=== PATIENT | female | born 1985 | race Caucasian/White ===

== ENCOUNTER 2024-05-29 14:26 | Inpatient (IN) | payer SELFPAY ==
[~2024-05-29] VITALS: Ht 157.5 cm; Wt 54.0 kg
[2024-05-29 15:36] LABS: BASOPHILS % 0.7 % (0.0-2.0); EOSINOPHILS % 2.3 % (0.0-5.0); HEMATOCRIT. 33.5 % (36.0-48.0); HEMOGLOBIN. 11.2 g/dL (12.0-16.0); LYMPHOCYTES % 31.3 % (20.0-50.0); MEAN CORPUSCULAR HEMOGLOBIN 27.7 pg (28.0-32.0); MEAN CORPUSCULAR HGB CONC 33.4 g/dL (31.0-37.0); MEAN CORPUSCULAR VOLUME 82.7 fL (81.0-99.0); MEAN PLATELET VOLUME 7.8 fl (7.4-10.4); MONOCYTES % 7.5 % (2.0-8.0); NEUTROPHILS % 58.2 % (40.0-76.0); PLATELET 243 x1000/uL (130-400); RED BLOOD CELL COUNT 4.05 mill/uL (4.2-5.4); WHITE BLOOD COUNT 4.8 x1000/uL (4.5-11.0)
[2024-05-29 15:42] LABS: HCG SCREEN NEGATIVE
[2024-05-29 15:43] LABS: CHLORIDE 108 mEq/L (98-107); POTASSIUM 3.7 mEq/L (3.5-5.1); SODIUM 138 mEq/L (136-145)
[2024-05-29 15:44] LABS: CARBON DIOXIDE 26 mEq/L (21-32)
[2024-05-29 15:48] LABS: UREA NITROGEN BLOOD 17 mg/dL (9-23)
[2024-05-29 15:49] LABS: CREATININE 0.7 mg/dL (0.6-1.0)
[2024-05-29 15:50] LABS: AMMONIA 40 uMol/L (<32); GLUCOSE 90 mg/dL (70-105)
[2024-05-29 15:51] LABS: ACETAMINOPHEN < 2 ug/mL (10-30); ALANINE AMINOTRANSFERASE 14 IU/L (10-49); ALBUMIN 4.1 g/dL (3.2-4.8); ASPARTATE AMINOTRANSFERASE 19 IU/L (<34)
[2024-05-29 15:52] LABS: BILIRUBIN DIRECT 0.1 mg/dL (<=3.0); BILIRUBIN TOTAL 0.5 mg/dL (0.1-1.0); PROTEIN TOTAL 6.8 g/dL (6.0-8.3)
[2024-05-29 15:53] LABS: THYROID STIMULATING HORMONE 1.85 uIU/mL (0.55-4.78)
[2024-05-29 15:58] LABS: ETHANOL BLOOD < 10 mg/dL (<10)
[2024-05-29] MEDS: LORAZEPAM 2MG/ML INJ IM ONE (17:21)
[2024-05-29] MEDS: HALOPERIDOL LACTATE 5MG/ML VIAL IM ONE (17:21)
[2024-05-29 18:25] LABS: CLARITY URINE CLEAR (CLEAR); COLOR URINE YELLOW (YELLOW); GLUCOSE URINE NEGATIVE (NEGATIVE); KETONES URINE NEGATIVE (NEGATIVE); LEUKOCYTE ESTERASE URINE TRACE (NEGATIVE); NITRITE URINE NEGATIVE (NEGATIVE); OCCULT BLOOD URINE NEGATIVE (NEGATIVE); PH URINE 7.5 (4.5-8.0); PROTEIN URINE TRACE (NEGATIVE); SPECIFIC GRAVITY URINE 1.019 (1.005-1.030)
[2024-05-29 18:44] LABS: *AMPHETAMINES SCREEN URINE PRESUMPTIVE POSITIVE (NEGATIVE); *BARBITURATES SCREEN URINE NEGATIVE (NEGATIVE); *BENZODIAZEPINES SCREEN URINE NEGATIVE (NEGATIVE); *COCAINE SCREEN URINE NEGATIVE (NEGATIVE); CANNABINOID URINE SCREEN NEGATIVE (NEGATIVE); ECSTASY MDMA SCREEN URINE CONF.TEST INDICATED (NEGATIVE); METHADONE URINE SCREEN NEGATIVE (NEGATIVE); OPIATES URINE SCREEN NEGATIVE (NEGATIVE); PHENCYCLIDINE URINE SCREEN NEGATIVE (NEGATIVE)
[2024-05-29 18:56] LABS: BACTERIA URINE 1+; RBC URINE 0-2 /hpf (0-2); SQUAMOUS EPITHELIAL CELL URINE 1+ /lpf (RARE/1+); WBC URINE 0-2 /hpf (0-2)
[2024-05-29] MEDS ORDERED: NITROGLYCERIN 0.4MG TABLET SL SL PRN (21:45)
[2024-05-29] MEDS ORDERED: ZOLPIDEM TARTRATE 5MG TABLET PO PRN (21:45)
[2024-05-29] MEDS: DEXT 5%/LACTATED RINGERS 1,000 ML IV SCH (21:45)
[2024-05-29] MEDS ORDERED: KETOROLAC 15MG/ML VIAL IV PRN (21:45)
[2024-05-30] VITALS (7 sets, daily range): BP systolic 96–112; BP diastolic 46–70; PULSE 58–89; RESP 17–18; TEMP 36.2512–37.00296; O2SAT 96–100
[2024-05-30] MEDS ORDERED: CLONIDINE 0.1MG TABLET PO PRN
[2024-05-30] MEDS ORDERED: DOCUSATE SODIUM 100MG CAPSULE PO PRN
[2024-05-30] MEDS ORDERED: IPRATROPIUM/ALBUTEROL 0.5-3(2.5)MG/3ML NEB NEB PRN
[2024-05-30] MEDS ORDERED: GUAIFENESIN 200MG/10ML SUGAR FREE UDC PO PRN
[2024-05-30] MEDS ORDERED: MAGNESIUM/ALUMINUM HYDROXIDE/SIMETHICONE 30ML UDC PO PRN
[2024-05-30] MEDS ORDERED: LORAZEPAM 2MG/ML INJ IV PRN
[2024-05-30] MEDS ORDERED: ONDANSETRON HCL 4MG/2ML INJ IV PRN
[2024-05-30] MEDS ORDERED: ACETAMINOPHEN 325MG TABLET PO PRN ×2
[2024-05-30 07:10] LABS: BASOPHILS % 0.5 % (0.0-2.0); EOSINOPHILS % 3.6 % (0.0-5.0); HEMATOCRIT. 35.2 % (36.0-48.0); HEMOGLOBIN. 11.2 g/dL (12.0-16.0); MEAN CORPUSCULAR HEMOGLOBIN 26.6 pg (28.0-32.0); MEAN CORPUSCULAR VOLUME 83.3 fL (81.0-99.0); MEAN PLATELET VOLUME 7.8 fl (7.4-10.4); MONOCYTES % 6.8 % (2.0-8.0); NEUTROPHILS % 59.1 % (40.0-76.0); PLATELET 204 x1000/uL (130-400); RED BLOOD CELL COUNT 4.22 mill/uL (4.2-5.4); RED CELL DISTRIBUTION WIDTH 13.8 % (11.6-14.6); WHITE BLOOD COUNT 4.2 x1000/uL (4.5-11.0)
[2024-05-30 07:18] LABS: CARBON DIOXIDE 26 mEq/L (21-32); CHLORIDE 108 mEq/L (98-107); POTASSIUM 3.9 mEq/L (3.5-5.1); SODIUM 140 mEq/L (136-145)
[2024-05-30 07:19] LABS: CALCIUM 8.4 mg/dL (8.7-10.4)
[2024-05-30 07:23] LABS: CREATININE 0.5 mg/dL (0.6-1.0); GLUCOSE 91 mg/dL (70-105); IRON 99 ug/dL (50-170)
[2024-05-30 07:24] LABS: TOTAL IRON BINDING CAPACITY 272 ug/dl (250-425); TRIGLYCERIDE 72 mg/dL (0-150); UREA NITROGEN BLOOD 15 mg/dL (9-23)
[2024-05-30 07:25] LABS: ALANINE AMINOTRANSFERASE 12 IU/L (10-49); ALBUMIN 3.4 g/dL (3.2-4.8); ASPARTATE AMINOTRANSFERASE 24 IU/L (<34); BILIRUBIN TOTAL 0.6 mg/dL (0.1-1.0); CHOLESTEROL 124 mg/dL (<200); LDL CHOLESTEROL 68 mg/dL (5-100)
[2024-05-30 07:26] LABS: HDL CHOLESTEROL 46 mg/dL (>65); PHOSPHORUS 3.1 mg/dL (2.5-4.9); T4 FREE 0.83 ng/dL (0.89-1.76)
[2024-05-30 07:44] LABS: FOLIC ACID (FOLATE) SERUM 14.82 ng/mL (>5.38)
[2024-05-30 07:45] LABS: VITAMIN B12 SERUM 328 pg/mL (211-911)
[2024-05-30] MEDS: ENOXAPARIN 40MG/0.4ML SYR SUBCUT SCH (08:41)
[2024-05-30] MEDS: PANTOPRAZOLE SODIUM 40 MG/VIAL IV SCH (08:41)
[2024-05-31 04:00] VITALS: BP 98/51; PULSE 70; RESP 20; TEMP 36.3918; O2SAT 98
[2024-05-31 08:00] VITALS: BP 98/55; PULSE 71; RESP 17; RESP 18; TEMP 36.72516; O2SAT 100
[2024-05-31 10:18] VITALS: BP 98/55; PULSE 71; TEMP 98.1; O2SAT 100
== END 2024-05-31 12:40 | disposition home or self-care (01) | DRG 52 ==
LOC: ER 14:31 → 5WST 20:55 → EDBEDREQ 21:09 → EDBEDREQTM 21:09 → EDBEDREQ 21:10 → 7EST 05-30 00:12
PROVIDERS: ADMIT Internal Medicine; ATTEND Internal Medicine
DX: G92.8 Other toxic encephalopathy (principal); F15.10 Other stimulant abuse, uncomplicated; Z59.00 Homelessness unspecified; Z79.899 Other long term (current) drug therapy
CPT/HCPCS: 36415; 80048; 80053; 80061; 80076; 80305; 80307; 80320; 80329; 81003; 82140; 82607; 82746; 83540; 83550; 83735; 84100; 84439; 84443; 84703; 85025; 93005; 99285; C1893; J1630; J1650; J2060; J2470; G0480